=== PATIENT | male | born 1990 | race Caucasian/White ===

== ENCOUNTER 2021-08-19 09:24 | Inpatient (IN) | payer BC ==
[~2021-08-19] VITALS: Ht 185.4 cm; Wt 5.0 kg
[2021-08-19] MEDS ORDERED: CLONAZEPAM0.25 MG (09:50)
[2021-08-19] MEDS ORDERED: ADDERALL 10 MG10 MG (09:50)
[2021-08-20] MEDS ORDERED: AMOX-CLAV 875-1 EACH PO (12:56)
== END 2021-08-20 14:50 | disposition home or self-care (01) | DRG 343 ==
LOC: ER 09:24 → O/R 14:49 → SEC-K 14:49 → O/R 15:07 → SURG 19:15
PROVIDERS: ADMIT Surgery; ATTEND Surgery
PROC: 0DTJ4ZZ Resection of Appendix, Percutaneous Endoscopic Approach (ICD-10-PCS; principal; 2021-08-19 15:30)
DX: K35.891 Other acute appendicitis without perforation, with gangrene (principal)